=== PATIENT | male | born 1995 | race Caucasian/White ===

== ENCOUNTER 2016-10-02 13:08 | Emergency (ER) | payer BC ==
[~2016-10-02] VITALS: Ht 188 cm; Wt 79.8 kg
[2016-10-02 13:10] VITALS: TEMP 36.6; Ht 188 cm; Wt 79.8 kg
[2016-10-02] MEDS ORDERED: RABIES VACCINE (IMOVAX) HUMAN DIPL CELL 2.5 INTER.UNIT/ML SYR IM. ONE (13:45)
[2016-10-02] MEDS ORDERED: RABIES IMMUNE GLOBULIN (HUMAN) 150 INTER.UNIT/ML 2 ML VIAL IM. ONE (13:45)
--- NOTE | 2016-10-02 14:20 | EMERGENCY ROOM VISIT NOTE ---
ED Visit Note First contact with patient: 13:20 CHIEF COMPLAINT: Cat scratch HISTORY OF PRESENT ILLNESS: This 21-year-old male patient presents to the emergency department is ambulatory due to a cat scratch. The patient states that he encountered stray kittens and was trying to move him to a safe place when one of the kitten scratched him on the left wrist. He is unable to find the cat now. His tetanus is up-to-date. He did clean the wound after it occurred. He denies any redness, swelling or pain. REVIEW OF SYSTEMS: A 6 system review of systems was completed with positives and pertinent negatives listed in the HPI. ALLERGIES: No known drug allergies MEDICATIONS: No chronic medications PMH: No significant past medical history. SOCIAL HISTORY: The patient is visiting [facility] for work. He is originally from [place]. PHYSICAL EXAM: Vital Signs: Reviewed Nurse's notes, vital signs stable. GENERAL : This is a 21-year-old male, in no acute distress, well-developed, well- nourished. HEAD: Atraumatic, without temporal or scalp tenderness. EYES: PERRLA, EOMI, no discharge or injection. SKIN: There is a superficial abrasion to the left wrist with no active bleeding. No surrounding erythema or edema. Capillary refill less than 2 seconds. HEART: Regular rate and rhythm, no murmurs gallops or rubs. LUNGS: Clear to auscultation throughout all lung contreras. NEUROLOGICAL: Alert and oriented to person place and time. Normal sensation to light and sharp touch. MUSCULOSKELETAL: Motor functions grossly intact of the left wrist. Full range of motion. There is no tenderness of the left wrist. EMERGENCY DEPARTMENT COURSE: I examined the patient. The patient was given rabies immunoglobulin at a dose of 20 Units/kg. The patient was given Imovax 2.5 units IM. The patient was observed for 20 minutes with no reaction. He is traveling back to [place] in 2 days and will receive his second injection there. The patient was discharged home in stable condition. DIAGNOSIS: Rabies prophylaxis Cat scratch DISCHARGE INSTRUCTIONS: Today is day 0. Return to the ER on days 3, 7, 14, and 28 for subsequent vaccinations. Return sooner or follow up with your family doctor for signs of infection (increased redness, discharge, fever) or for complications with the vaccine series. Vital Signs Date Time Temp Pulse Resp B/P Pulse Ox O2 Delivery O2 Flow Rate FiO2 10/02/16 14:35 72 16 112/78 99 10/02/16 13:10 36.6 71 18 132/74 98 Room Air Medications Administered Medications (Trade) Dose Ordered Sig/Kristin Route Start Time Stop Time Status Last Admin Dose Admin Rabies Immune Globulin (Imogam Rabies Inj) 1,600 interunit ONCE ONCE IM. 10/02/16 13:45 10/02/16 13:48 DC 10/02/16 14:22 1,600 INTERUNIT Rabies Vaccine Human Diploid Cell (Imovax Rabies) 2.5 interunit ONCE ONCE IM. 10/02/16 13:45 10/02/16 13:48 DC 10/02/16 14:24 2.5 INTERUNIT Departure Information Impression Primary Impression: Rabies, need for prophylactic vaccination against Additional Impression: Cat scratch Dispostion Home / Self-Care Condition GOOD Referrals No Doctor, Assigned (PCP) Patient Instructions [facility] Additional Instructions Today is day 0. You will need subsequent injections on days 3, 7, and 14. Dates to return: 10/05/16 10/09/16 10/16/16 Return sooner or follow up with your family doctor for signs of infection ( increased redness, discharge, fever) or for complications with the vaccine series. Problem Qualifiers
[2016-10-02 14:35] VITALS: BP 112/78; PULSE 72; O2SAT 99
== END 2016-10-02 14:35 | disposition home or self-care (01) ==
LOC: C.EDB 13:09 → C.EDD 14:35
DX: S60.812A Abrasion of left wrist, initial encounter (principal); W55.03XA Scratched by cat, initial encounter; Z23 Encounter for immunization